=== PATIENT | female | born 1980 | race Hispanic/Latino ===

== ENCOUNTER 2019-08-25 17:34 | Observation (INO) | payer OTHER ==
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
[2019-08-25 18:14] LABS: Absolute Lymphocytes (CBC) 1.7 K/uL (0.7-4.9); Basophils % 0.7 % (0-1.3); Hematocrit 38.1 % (36.0-45.0); Lymphocytes % 38.7 % (15.3-44.8); MPV 8.4 fL (7.6-11.3); Protime INR 1.04; RBC Red Blood Cell Count 4.25 M/uL (3.86-4.86)
--- NOTE | 2019-08-25 18:29 | RAD REPORT ---
EXAM DESCRIPTION: RAD - Chest Single View - 08/25/2019 6:20 pm CLINICAL HISTORY: CHEST PAIN Chest pain. COMPARISON: CHEST PA AND LAT 2 VIEW dated 02/05/2011; CHEST SINGLE VIEW dated 01/19/2011; CHEST PA AND LAT 2 VIEW dated 01/18/2011; CHEST PA AND LAT 2 VIEW dated 01/17/2011 FINDINGS: Portable technique limits examination quality. The lungs are grossly clear. The heart is normal in size. No displaced fractures. IMPRESSION: No acute intrathoracic process suspected.
[2019-08-25 18:30] LABS: ALT/SGPT 28 U/L (12-78); AST/SGOT 19 U/L (15-37); Albumin 3.8 g/dL (3.4-5.0); Alkaline Phosphatase 72 U/L (45-117); BUN Blood Urea Nitrogen 7 mg/dL (7-18); Bicarbonate 28 mmol/L (21-32); Bilirubin Direct 0.1 mg/dL (0-0.2); Bilirubin Total 0.3 mg/dL (0.2-1.0); Glucose Level 76 mg/dL (74-106); Magnesium 2.2 mg/dL (1.8-2.4); NT PRO-BNP 12 pg/mL (<125); Potassium 3.6 mmol/L (3.5-5.1); Protein, Total 7.3 g/dL (6.4-8.2); Sodium Level 140 mmol/L (136-145); Troponin (Emerg Dept Use Only) < 0.02 ng/mL (0.0-0.045)
[2019-08-25] MEDS ORDERED: ONDANSETRON 4 MG/2 ML VIAL ONE (18:40)
[2019-08-25] MEDS ORDERED: MORPHINE 4 MG/ML SYR ONE (18:40)
[2019-08-25] MEDS ORDERED: ASPIRIN 81 MG CHEWABLE TABLET ONE (18:40)
--- NOTE | 2019-08-25 19:47 | EDPHYS ---
[facility] Name: Bozena Hancock Age: 39 yrs Sex: Female : 1980 Arrival Date: 08/25/2019 Time: 17:36 Bed 6 Private MD: Abdi Brumfield R ED Physician Landry Isaac HPI: 08/25 18:39 This 39 yrs old Female presents to ER via Ambulatory with complaints of Chest kdr Pain, Arm Pain. 18:39 The patient or guardian reports chest pain that is located primarily in the substernal kdr area, anterior chest wall, left, xyphoid area and left breast. Onset: suddenly, this morning, at 09:00. The pain radiates to the left arm, the left shoulder, left neck. Associated signs and symptoms: Pertinent positives: nausea, shortness of breath, Pertinent negatives: abdominal pain, diaphoresis, headache, lightheadedness, palpitations, recent travel, syncope, vomiting. The chest pain is described as aching, a pressure, squeezing. Duration: The patient or guardian reports a single episode, that is still ongoing, and unchanged. Modifying factors: The symptoms are alleviated by nothing. the symptoms are aggravated by nothing. Severity of pain: At its worst the pain was moderate severe today, in the emergency department the pain has improved mildly. The patient has experienced similar episodes in the past, a few times, She has not sought treatment prior to today. 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 - Coronavirus screen:: The patient has NOT traveled to [place] in the past 14 days. Proceed with normal triage process as indicated. - Social history:: Smoking status: Patient denies any tobacco usage or history of. - Ebola Screening: : No symptoms or risks identified at this time. ROS: 18:39 Constitutional: Negative for fever, chills, and weight loss, Eyes: Negative for injury, kdr pain, redness, and discharge, ENT: Negative for injury, pain, and discharge, Neck: Negative for injury, pain, and swelling, Respiratory: Negative for shortness of breath, cough, wheezing, and pleuritic chest pain, Abdomen/GI: Negative for abdominal pain, nausea, vomiting, diarrhea, and constipation, Back: Negative for injury and pain, : Negative for injury, bleeding, discharge, and swelling, MS/Extremity: Negative for injury and deformity, Skin: Negative for injury, rash, and discoloration, Neuro: Negative for headache, weakness, numbness, tingling, and seizure activity. Psych: Negative for depression, anxiety, suicide ideation, homicidal ideation, and hallucinations, Allergy/Immunology: Negative for hives, rash, and allergies, Endocrine: Negative for neck swelling, polydipsia, polyuria, polyphagia, and marked weight changes, Hematologic/Lymphatic: Negative for swollen nodes, abnormal bleeding, and unusual bruising. 18:39 Cardiovascular: Positive for chest pain, Negative for edema, orthopnea, palpitations, paroxysmal nocturnal dyspnea. Exam: 18:39 Constitutional: This is a well developed, well nourished patient who is awake, alert, kdr and in no acute distress. Head/Face: Normocephalic, atraumatic. Eyes: Pupils equal round and reactive to light, extra-ocular motions intact. Lids and lashes normal. Conjunctiva and sclera are non-icteric and not injected. Cornea within normal limits. Periorbital areas with no swelling, redness, or edema. Neck: Trachea midline, no thyromegaly or masses palpated, and no cervical lymphadenopathy. Supple, full range of motion without nuchal rigidity, or vertebral point tenderness. No Meningismus. Chest/axilla: Normal chest wall appearance and motion. Nontender with no deformity. No lesions are appreciated. Cardiovascular: Regular rate and rhythm with a normal S1 and S2. No gallops, murmurs, or rubs. Normal PMI, no JVD. No pulse deficits. Respiratory: Lungs have equal breath sounds bilaterally, clear to auscultation and percussion. No rales, rhonchi or wheezes noted. No increased work of breathing, no retractions or nasal flaring. Abdomen/GI: Soft, non-tender, with normal bowel sounds. No distension or tympany. No guarding or rebound. No evidence of tenderness throughout. Back: No spinal tenderness. No costovertebral tenderness. Full range of motion. Skin: Warm, dry with normal turgor. Normal color with no rashes, no lesions, and no evidence of cellulitis. MS/ Extremity: Pulses equal, no cyanosis. Neurovascular intact. Full, normal range of motion. Neuro: Awake and alert, GCS 15, oriented to person, place, time, and situation. Cranial nerves II-XII grossly intact. Motor strength 5/5 in all extremities. Sensory grossly intact. Cerebellar exam normal. Normal gait. Psych: Awake, alert, with orientation to person, place and time. Behavior, mood, and affect are within normal limits. Vital Signs: 17:50 BP 131 / 84 RA; jl7 17:50 BP 137 / 98 LA; Pulse 107; Resp 19 S; Pulse Ox 100% on R/A; Weight 56.7 kg (R); Pain jl7 6/10; 18:30 BP 115 / 81; Pulse 90; Resp 14 S; Temp 98.2(O); Pulse Ox 100% on R/A; jl7 19:30 BP 111 / 80; Pulse 85; Resp 17; Temp 98; Pulse Ox 99% on R/A; Pain 1/10; rr5 20:20 BP 101 / 76; Pulse 75; Resp 16; Pulse Ox 98% ; rr5 21:00 BP 113 / 75; Pulse 80; Resp 16; Temp 97.8; Pulse Ox 98% on R/A; rr5 MDM: 17:55 Post IV fluid administration reassessment for Sepsis:. kdr 19:13 Patient medically screened. jr8 19:35 Data reviewed: vital signs, nurses notes, lab test result(s), EKG, radiologic studies, jr8 plain films. Data interpreted: Pulse oximetry: on room air is 100 %. Interpretation: normal. Counseling: I had a detailed discussion with the patient and/or guardian regarding: the historical points, exam findings, and any diagnostic results supporting the discharge/admit diagnosis, lab results, radiology results, the need for outpatient follow up, a lyric writer, a family practitioner, to return to the emergency department if symptoms worsen or persist or if there are any questions or concerns that arise at home. Response to treatment: the patient's symptoms have markedly improved after treatment. Physician consultation: Abdi Brumfield MD was called at 19:45, was contacted at 19:45, regarding admission, to the telemetry unit. consult, patient's condition. 19:46 ED course: Although patient is feeling much better. Still continues to have mild chest jr8 pressure that is not reproducible. First round of enzymes along with other labs, imaging, and ecg were without concerning findings. Recommended observation if she is still having pain which she agreed to . 08/25 17:45 Order name: Basic Metabolic Panel [facility] 08/25 17:45 Order name: CBC with Diff [facility] 08/25 17:45 Order name: LFT's [facility] 08/25 17:45 Order name: Magnesium [facility] 08/25 17:45 Order name: NT PRO-BNP [facility] 08/25 17:45 Order name: PT-INR [facility] 08/25 17:45 Order name: Troponin (emerg Dept Use Only) [facility] 08/25 17:51 Order name: Basic Metabolic Panel; Complete Time: 19:34 [facility] 08/25 17:51 Order name: CBC with Automated Diff; Complete Time: 19:34 [facility] 08/25 17:51 Order name: Liver (Hepatic) Function; Complete Time: 19:34 [facility] 08/25 17:51 Order name: Magnesium; Complete Time: 19:34 [facility] 08/25 17:52 Order name: NT PRO-BNP; Complete Time: 19:34 [facility] 08/25 17:52 Order name: Protime (+INR); Complete Time: 19:34 [facility] 08/25 17:52 Order name: Troponin (Emerg Dept Use Only); Complete Time: 19:34 [facility] 08/25 17:45 Order name: XRAY Chest (1 view); Complete Time: 19:34 [facility] 08/25 17:45 Order name: EKG; Complete Time: 17:50 [facility] 08/25 17:45 Order name: Cardiac monitoring; Complete Time: 17:56 [facility] 08/25 17:45 Order name: EKG - Nurse/Tech; Complete Time: 17:55 [facility] 08/25 17:45 Order name: IV Saline Lock; Complete Time: 18:06 [facility] 08/25 17:45 Order name: Labs collected and sent; Complete Time: 18:06 [facility] 08/25 17:45 Order name: O2 Per Protocol; Complete Time: 17:56 [facility] 08/25 17:45 Order name: O2 Sat Monitoring; Complete Time: 17:56 [facility] 08/25 19:58 Order name: CONS Physician Consult EDMS EC:39 Rate is 101 beats/min. Rhythm is regular, Sinus tachycardia with No ectopy. QRS [place] is kdr Normal. [place] interval is normal. QRS interval is normal. QT interval is normal. No Q waves. Clinical impression: Normal ECG and Sinus tachycardia. Administered Medications: 18:40 Drug: Zofran 4 mg Route: IVP; Site: right antecubital; jl7 20:12 Follow up: Response: No adverse reaction rr5 18:42 Drug: morphine 4 mg Route: IVP; Site: right antecubital; jl7 20:12 Follow up: Response: No adverse reaction; Pain is decreased; RASS: Alert and Calm (0) rr5 18:44 Drug: Aspirin Chewable Tablet 324 mg Route: PO; jl7 20:12 Follow up: Response: No adverse reaction rr5 Disposition: 08/26 07:08 Co-signature as Attending Physician, Landry Isaac MD I agree with the assessment and [facility] plan of care. Disposition: 08/25/19 19:46 Hospitalization ordered by Abid Brumfield for Observation. Preliminary diagnosis is Chest pain, unspecified. - Bed requested for Telemetry/MedSurg (observation). - Status is Observation. rr5 - Condition is Stable. - Problem is new. - Symptoms have improved. Signatures: Dispatcher [employer] EDCO Landry Isaac MD MD [facility] Hasmukh Blount PA PA jr8 Katerina Sauer, MIRA RN cg Sharon Aiken RN RN jl7 Hiram Barajas, RN RN rr5 Corrections: (The following items were deleted from the chart) 08/25 20:33 19:46 Hospitalization Ordered by Abdi Brumfield MD for Observation. Preliminary diagnosis cg is Chest pain, unspecified. Bed requested for Telemetry/MedSurg (observation). Status is Observation. Condition is Stable. Problem is new. Symptoms have improved. jr8 21:07 20:33 08/25/2019 19:46 Hospitalization Ordered by Abdi Brumfield MD for Observation. rr5 Preliminary diagnosis is Chest pain, unspecified. Bed requested for Telemetry/MedSurg (observation). Status is Observation. Condition is Stable. Problem is new. Symptoms have improved. cg
--- NOTE | 2019-08-25 19:47 | ER ---
Nurse's Notes [facility] Name: Bozena Hancock Age: 39 yrs Sex: Female : 1980 Arrival Date: 08/25/2019 Time: 17:36 Bed 6 Private MD: Abdi Brumfield R Diagnosis: Chest pain, unspecified Presentation: 08/25 17:40 Transition of care: patient was not received from another setting of care. Onset of tw2 symptoms was August 25, 2019. Risk Assessment: Do you want to hurt yourself or someone else? Patient reports no desire to harm self or others. Care prior to arrival: None. 17:40 Method Of Arrival: Ambulatory tw2 17:40 Acuity: NICOLE 3 tw2 17:46 Presenting complaint: Patient states: Constant, squeezing chest pain started this jl7 morning, radiate to left arm and shoulder. Initial Sepsis Screen: Does the patient meet any 2 criteria? No. Patient's initial sepsis screen is negative. Does the patient have a suspected source of infection? No. Patient's initial sepsis screen is negative. Triage Assessment: 17:40 General: Appears in no apparent distress. slender, well groomed, Behavior is calm, tw2 cooperative, appropriate for age. Pain: Complains of pain in chest. Cardiovascular: Reports chest pain. 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 - Coronavirus screen:: The patient has NOT traveled to [place] in the past 14 days. Proceed with normal triage process as indicated. - Social history:: Smoking status: Patient denies any tobacco usage or history of. - Ebola Screening: : No symptoms or risks identified at this time. Screenin:39 Abuse screen: Denies threats or abuse. Nutritional screening: No deficits noted. tw2 Tuberculosis screening: No symptoms or risk factors identified. Fall Risk None identified. Assessment: 17:53 General: Appears in no apparent distress. uncomfortable, Behavior is calm, cooperative, jl7 appropriate for age. Pain: Complains of pain in anterior aspect of left upper chest Pain radiates to left scapular area and left arm Pain currently is 6 out of 10 on a pain scale. Quality of pain is described as squeezing, Pain began This morning Is continuous. Neuro: Level of Consciousness is awake, alert, obeys commands, Oriented to person, place, time, situation. Cardiovascular: Heart tones S1 S2 present Patient's skin is warm and dry. Rhythm is sinus rhythm. Respiratory: Airway is patent Respiratory effort is even, unlabored, Respiratory pattern is regular, symmetrical, Breath sounds are clear bilaterally. Denies shortness of breath. GI: Abdomen is non-distended, Reports nausea. Derm: Skin is pink, warm \T\ dry. 19:20 General: Appears in no apparent distress. comfortable, Behavior is calm, cooperative, rr5 appropriate for age, ED provider advised for admission, patient agreed. . Pain: Complains of pain in chest Pain radiates to left arm Pain currently is 1 out of 10 on a pain scale. Quality of pain is described as discomfort Pain began gradually, Is intermittent. 19:20 Reassessment: Patient states feeling better. Patient states symptoms have improved. rr5 Neuro: Level of Consciousness is awake, alert, obeys commands, Oriented to person, place, time, situation. Cardiovascular: Reports chest discomfort Capillary refill < 3 seconds Patient's skin is warm and dry. Respiratory: Airway is patent Respiratory effort is even, unlabored, Respiratory pattern is regular, symmetrical. GI: No signs and/or symptoms were reported involving the gastrointestinal system. : No signs and/or symptoms were reported regarding the genitourinary system. EENT: No signs and/or symptoms were reported regarding the EENT system. Derm: Skin is intact, is healthy with good turgor, Skin is pink, warm \T\ dry. Musculoskeletal: Capillary refill < 3 seconds. 20:20 Reassessment: Patient appears in no apparent distress at this time. No changes from rr5 previously documented assessment. Patient is alert, oriented x 3, equal unlabored respirations, skin warm/dry/pink. awaiting for room assignment. 20:58 Reassessment: Patient appears in no apparent distress at this time. Patient is alert, rr5 oriented x 3, equal unlabored respirations, skin warm/dry/pink. for transfer to room 406, 4th floor staff informed. Vital Signs: 17:50 BP 131 / 84 RA; jl7 17:50 BP 137 / 98 LA; Pulse 107; Resp 19 S; Pulse Ox 100% on R/A; Weight 56.7 kg (R); Pain jl7 6/10; 18:30 BP 115 / 81; Pulse 90; Resp 14 S; Temp 98.2(O); Pulse Ox 100% on R/A; jl7 19:30 BP 111 / 80; Pulse 85; Resp 17; Temp 98; Pulse Ox 99% on R/A; Pain 1/10; rr5 20:20 BP 101 / 76; Pulse 75; Resp 16; Pulse Ox 98% ; rr5 21:00 BP 113 / 75; Pulse 80; Resp 16; Temp 97.8; Pulse Ox 98% on R/A; rr5 ED Course: 17:36 Patient arrived in ED. mr 17:36 Abdi Brumfield MD is Private Physician. mr 17:39 Bed in low position. Call light in reach. 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 Pulse ox on. NIBP on. tw2 17:39 Arm band placed on. EKG completed in triage. Results shown to MD. tw2 17:40 Triage completed. tw2 17:41 Landry Isaac MD is Attending Physician. kdr 17:45 Sharon Aiken RN is Primary Nurse. jl7 17:53 EKG done, by ED staff, reviewed by Landry Isaac MD. Patient maintains SpO2 saturation jl7 greater than 95% on room air. 18:07 Initial lab(s) drawn, by ne, sent to lab. Inserted saline lock: 20 gauge in right jl7 antecubital area, using aseptic technique. Blood collected. 18:27 XRAY Chest (1 view) In Process Unspecified. EDMS 18:59 Hasmukh Blount PA is PHCP. jr8 19:46 Abdi Brumfield MD is Hospitalizing Provider. jr8 20:59 No provider procedures requiring assistance completed. Patient admitted, IV remains in rr5 place. intact, No redness/swelling at site. Administered Medications: 18:40 Drug: Zofran 4 mg Route: IVP; Site: right antecubital; jl7 20:12 Follow up: Response: No adverse reaction rr5 18:42 Drug: morphine 4 mg Route: IVP; Site: right antecubital; jl7 20:12 Follow up: Response: No adverse reaction; Pain is decreased; RASS: Alert and Calm (0) rr5 18:44 Drug: Aspirin Chewable Tablet 324 mg Route: PO; jl7 20:12 Follow up: Response: No adverse reaction rr5 Outcome: 19:46 Decision to Hospitalize by Provider. jr8 20:59 Admitted to Tele accompanied by [facility], via stretcher, room [facility], with chart, Report rr5 called to tayler 20:59 Condition: stable 20:59 Instructed on the need for admit. 21:07 Patient left the ED. rr5 Signatures: Dispatcher [employer] EDMS Landry Isaac MD MD kdr Rivera, Mary mr Roszak, Josh, PA PA jr8 Adelaide Strong RN RN tw2 Sharon Aiken RN RN jl7 Hiram Barajas RN RN rr5 Corrections: (The following items were deleted from the chart) 18:45 10:40 Zofran 4 mg IVP in right antecubital jl7 jl7 18:48 14:20 morphine 4 mg IVP in right antecubital jl7 jl7 20:59 20:58 Reassessment: Patient appears in no apparent distress at this time. Patient is rr5 alert, oriented x 3, equal unlabored respirations, skin warm/dry/pink. for transfer to room [facility], $th floor staff informed rr5 21:07 21:00 BP 115 / 75; Pulse 80bpm; Resp 16bpm; Pulse Ox 98% RA; rr5 rr5
[2019-08-25] MEDS ORDERED: ONDANSETRON 4 MG/2 ML VIAL IV PRN (21:39)
[2019-08-25] MEDS ORDERED: MORPHINE 4 MG/ML SYR IV PRN (21:39)
[2019-08-25] MEDS ORDERED: ACETAMINOPHEN 500 MG TAB PO PRN (21:39)
[2019-08-25 22:22] VITALS: O2SAT 99
[2019-08-25 23:00] VITALS: BMI 21.7
[2019-08-26 05:31] LABS: Absolute Lymphocytes (CBC) 1.9 K/uL (0.7-4.9); Basophils % 0.8 % (0-1.3); Hematocrit 34.5 % (36.0-45.0); Lymphocytes % 45.1 % (15.3-44.8); MPV 8.5 fL (7.6-11.3); RBC Red Blood Cell Count 3.84 M/uL (3.86-4.86)
[2019-08-26 05:49] LABS: Potassium 3.7 mmol/L (3.5-5.1)
--- NOTE | 2019-08-26 07:52 | EKG ---
Test Date: 2019-08-25 Test Time: 17:43:09 Government Professor: HB MEASUREMENT RESULTS: Intervals: Rate: 101 GA: 116 QRSD: 80 QT: 352 QTc: 456 Bryan: P: 57 GA: 116 QRS: 68 T: 41 INTERPRETIVE STATEMENTS: Sinus tachycardia Otherwise normal ECG Compared to ECG 01/17/2011 15:13:58 Right-axis deviation no longer present Electronically Signed On 08-26-19 07:51:31 AGRICULTURAL AND FORESTRY SUPERVISOR by Hemant Rees
[2019-08-26 07:59] LABS: Blood Morphology Comment NOT SEEN (NOT SEEN); Platelet Estimate ADEQ
[2019-08-26] MEDS ORDERED: INFLUENZA VACCINE (for 3y+) 0.5 ML DOSE IMVAC ONE (08:00)
[2019-08-26] MEDS ORDERED: ASPIRIN EC 81 MG TAB PO SCH (09:00)
[2019-08-26] MEDS ORDERED: REGADENOSON 0.4 MG/5 ML SYR IV ONE (09:27)
--- NOTE | 2019-08-26 11:57 | RAD REPORT ---
EXAM DESCRIPTION: NM - Rest Stress Cardiac Imaging - 08/26/2019 11:48 am CLINICAL HISTORY: Chest pain. COMPARISON: None. TECHNIQUE: The patient was administered approximately 10mCi of Tc 99m Sestamibi prior to resting SPE CT imaging of the heart. The patient was then administered approximately 30 mCi of Tc 99m Sestamibi f ollowing exercise or pharmacologic stress. Multiplanar SPECT images were reviewed. FINDINGS: There is uniformity of radiotracer uptake involving the entire left ventricular myocardiu m on rest and stress images. The left ventricular ejection fraction equals 53% IMPRESSION: Negative for a myocardial perfusion defect
--- NOTE | 2019-08-26 12:03 | TREADPHA ---
DX: CHEST PAIN Date of Study: 08/26/2019 Ht: 5 3 Wt: 123 lb 0 oz Consulting Physician: LETICIA MEDICATIONS: TYLENOL, ASPIRIN, ZOFRAN HISTORY: 39 YEAR OLD FEMALE WITH HISTORY OF INSOMNIA, ADD, ANEMIA. ADMITTED FOR CHEST PAIN RADIATING TO LEFT ARM. DENIES PAIN AT TIME OF STUDY. PHYSICIAL EXAMINATION: RESTING B.P.: 98/64 RESTING H.R.: 67 RESTING EKG: NORMAL PROTOCOL: LEXISCAN EXERCISE TIME: 3:30 B.P. AT PEAK STRESS: 98/62 IMPRESSION: LEXISCAN STRESS TEST PERFORMED. CARDIOLITE INJECTED PER PROTOCOL. NO SUPRAVENTRICULAR TACHYCARDIA OR VENTRICULAR TACHYCARDIA NOTED. PATIENT DENIED CHEST PAIN. TOLERATED WELL. SEE NUCLEAR MEDICINE REPORT.
[2019-08-26 12:05] VITALS: BP 110/59; TEMP 97.1
--- NOTE | 2019-08-26 17:24 | CON ---
Date of Consultation: 08/26/[address] Brumfield's service on 08/25/2019. I saw the patient on 08/26/2019. Reason For Consultation: Chest pain. History Of Present Illness: Ms. Hancock is a 39-year-old woman without any significant past cardiac history. She has a history of attention deficit disorder and depression. Has had 2 episodes now wit h substernal chest pain radiating to the left arm and to the back of the neck that would last hours. No nausea, vomiting, diaphoresis, PND, orthopnea, pedal edema, palpitation, or syncope. Her EKG is normal. Her troponin and BNP are normal. Her symptoms are nonexertional. She does have some numbne ss in her hand occasionally and in her back and sometimes has had episodes of tachycardia unrelated t o food, time of the day, or body position. She does drink caffeine in the form of Coke. Allergies: MORPHINE. Review of Systems: Negative. Social History: Negative. Family History: Noncontributory. Medications: Include Ambien, Abilify, and Wellbutrin. Physical Examination: General: Very pleasant lady. No acute distress. Vital Signs: Stable. Afebrile. HEENT: Negative. Neck: Supple with no bruit. Chest: Clear to auscultation and percussion. Cardiac: Revealed a regular rhythm and rate. No murmurs, gallops, or rubs. Abdomen: Benign. Extremities: Revealed no clubbing, cyanosis, or edema. Diagnostic Data: All stated earlier. Impression And Plan: 1.Atypical chest pain. 2.Palpitation. 3.Attention deficit disorder. 4.Depression. I think this would be reasonable considering her symptoms sound worrisome to get an echocardiogram an d a stress test today. If these are negative, I will consider sending her home on low-dose beta bloc kers. We can see her as an outpatient and set her up for an event monitor and see what her tachycard ia is from. SARABJIT/CRYSTALL Voice ID: [id number] Report ID: [id number]
--- NOTE | 2019-08-26 22:19 | HP ---
Date of Admission: 08/25/2019 Chief Complaint: Chest pain. History Of Present Illness: 39-year-old female who does not have any prior history of coronary arter y disease or cardiac history, was brought to the emergency room because of left precordial chest pain and left arm pain. The patient had evaluation done. There was no evidence of myocardial injury. T he patient is admitted. Past Medical History: 1.Positive for anxiety and depression, on multiple medications. 2.History of ADD present. Past Surgical History: Positive for gallbladder surgery, tubal ligation, and surgery on the left fem ur. Review of Systems: No history of fever, chills, or rigors. Family History: Noncontributory. Personal History: Nonsmoker. Physical Examination: General: Revealed a 39-year-old female, comfortable at rest. HEENT: Negative. Neck: Supple. JVD negative. Chest: Clear. Heart: Regular. Abdomen: Soft. Extremities: No edema. Laboratory: White count normal. Chem profile normal. Troponin normal. EKG: No acute changes. Assessment: 1.Chest pain. 2.Chronic anxiety and depression. 3.ADHD. Plan: The patient is scheduled for stress test and echocardiogram. RHONDA/ANA ROSA Voice ID: [id number]
--- NOTE | 2019-08-29 09:28 | ECHO ---
HEIGHT: 5 ft 3 in WEIGHT: 123 lb 0 oz DATE OF STUDY: 08/26/[address]: Hemant Rees MD 2-DIMENSIONAL: YES M.MODE: YES DOPPLER: YES COLOR FLOW: YES TDS: PORTABLE: DEFINITY: BUBBLE STUDY: DIAGNOSIS: CHEST PAIN CARDIAC HISTORY: CATHERIZATION: NO SURGERY: NO PROSTHETIC VALVE: NO PACEMAKER: NO MEASUREMENTS (cm) DIASTOLIC (NORMALS) SYSTOLIC (NORMALS) IVSd 0.9 (0.6-1.2) LA Diam 2.0 (1.9-4.0) LVEF 55% LVIDd 3.8 (3.5-5.7) LVIDs 2.7 (2.0-3.5) %FS 28% LVPWd 1.0 (0.6-1.2) Ao Diam 2.5 (2.0-3.7) 2 DIMENSIONAL ASSESSMENT: RIGHT ATRIUM: NORMAL LEFT ATRIUM: NORMAL RIGHT VENTRICLE: NORMAL LEFT VENTRICLE: NORMAL TRICUSPID VALVE: NORMAL MITRAL VALVE: NORMAL PULMONIC VALVE: NORMAL AORTIC VALVE: NORMAL PERICARDIAL EFFUSION: NONE AORTIC ROOT: NORMAL LEFT VENTRICULAR WALL MOTION: NORMAL DOPPLER/COLOR FLOW: NORMAL COMMENTS: NORMAL 2-DIMENSIONAL ECHOCARDIOGRAM WITH DOPPLER. NO WALL MOTION ABNORMALITY. NO EFFUSION. TECHNOLOGIST: PETERSON GRANADOS
== END 2019-08-26 14:17 | disposition home or self-care (01) ==
LOC: ER 17:34 → ERHOLD 19:52 → 4TH 20:57
PROVIDERS: ADMIT Internal Medicine; ATTEND Internal Medicine
DX: R07.89 Other chest pain (principal); R00.2 Palpitations; F90.9 Attention-deficit hyperactivity disorder, unspecified type; I25.10 Atherosclerotic heart disease of native coronary artery without angina pectoris; F41.8 Other specified anxiety disorders
CPT/HCPCS: 93005; 93017; 93306; 85025 ×2; 80048 ×2; 36415; 83735; 85610; 80076; 84484 ×3; 83880; 71045; 78452; 96375; 96374; 99285; J2785; J2405; A9500; G0378 ×2

== ENCOUNTER 2022-04-30 06:26 | Day surgery (SDC) | payer OTHER ==
[2022-04-30] MEDS ORDERED: EPINEPHRINE/PF 1 MG/ML AMP ONE (06:49)
[2022-04-30] MEDS: Ringers Lactate 1,000 ML IV ONE ×2 (06:54→07:10)
[2022-04-30] MEDS ORDERED: propofoL 200 MG/20 ML VIAL IV ONE (07:17)
[2022-04-30] MEDS ORDERED: LIDOCAINE 1% MPF 30 ML VIAL ONE (07:18)
--- NOTE | 2022-04-30 08:42 | ENDO RPT ---
[address], [address] EGD PROCEDURE REPORT EXAM DATE: 04/30/2022 PATIENT NAME: Bozena Hancock MR#: [id number] BIRTHDATE: 1980 ATTENDING: Moshe Langley Dr STATUS: outpatient MANAGER NEONATAL: Kayla Chung RN and Nafisa Magaña INDICATIONS: The patient is a 41 yr old Female here for an EGD due to left upper quadrant abdominal pain, bloating, nausea and vomiting, and chronic unexplained diarrhea PROCEDURE PERFORMED: EGD with biopsy MEDICATIONS: Per Anesthesia. TOPICAL ANESTHETIC: none CONSENT: The patient understands the risks and benefits of the procedure and understands that these risks include, but are not limited to: sedation, allergic reaction, infection, perforation and/or bleeding. Alternative means of evaluation and treatment include, among others: physical exam, x-rays, and/or surgical intervention. The patient elects to proceed with this endoscopic procedure. DESCRIPTION OF PROCEDURE: During intra-op preparation period all mechanical medical equipment was checked for proper function. Hand hygiene and appropriate measures for infection prevention was taken. Procedure, possible complications, and alternatives including but not limited to the possibility of bleeding, perforation, tear, infection, sepsis, need for surgery, need for blood transfusion, and anesthesia related complications were explained to the patient. After the risks, benefits and alternatives of the procedure were thoroughly explained, Informed consent was verified, confirmed and timeout was successfully executed by the treatment team. The patient was placed in the left lateral position. The patient was anesthetized with topical anesthesia. Through the anesthetized oropharyngeal area, the scope was passed without any difficulty. The Pentax EG-[id number] ([id number]) endoscope was introduced through the mouth and advanced to the third portion of the duodenum. Retroflexed views revealed a small hiatal hernia. The gastroscope was then slowly withdrawn and removed. A small hiatal hernia was found. Bile reflux fluid was found in the body of the stomach - suctioned out with endoscope. Mild gastritis was found in the body and the antrum of the stomach. Multiple biopsies were obtained and sent to pathology. Few small 2-3 mm sessile polyps were found in the body of the stomach. With jumbo forceps, a biopsy was obtained and sent to pathology. Small bowel biopsies obtained with history of chronic unexplained diarrhea Multiple biopsies were obtained and sent to pathology. ADVERSE EVENTS: There were no complications. IMPRESSIONS: 1. Small hiatal hernia 2. Bile reflux fluid in the body of the stomach - suctioned out with endoscope 3. Mild gastritis in the body and the antrum of the stomach, s/p biopsies 4. Few small 2-3 mm sessile polyps in the body of the stomach, s/p biopsy 5. Small bowel biopsies obtained with history of chronic unexplained diarrhea RECOMMENDATIONS: 1. await biopsy results 2. acid suppression therapy REPEAT EXAM: Moshe Langley Dr eSigned: Moshe Langley Dr 04/30/2022 8:42 AM cc: CPT CODES: ICD9 CODES: PATIENT NAME: Bozena Hancock MR#: [id number]
--- NOTE | 2022-04-30 09:05 | ENDO RPT ---
[address], [address] EGD PROCEDURE REPORT EXAM DATE: 04/30/2022 PATIENT NAME: Bozena Hancock MR#: [id number] BIRTHDATE: 1980 ATTENDING: Moshe Langley Dr STATUS: outpatient ELECTROPHYSIOLOGY NURSE PRACTITIONER: Kayla Chung RN and Nafisa Magaña INDICATIONS: The patient is a 41 yr old Female here for an EGD due to left upper quadrant abdominal pain, bloating, nausea and vomiting, and chronic unexplained diarrhea PROCEDURE PERFORMED: EGD with biopsy MEDICATIONS: Per Anesthesia. TOPICAL ANESTHETIC: none CONSENT: The patient understands the risks and benefits of the procedure and understands that these risks include, but are not limited to: sedation, allergic reaction, infection, perforation and/or bleeding. Alternative means of evaluation and treatment include, among others: physical exam, x-rays, and/or surgical intervention. The patient elects to proceed with this endoscopic procedure. DESCRIPTION OF PROCEDURE: During intra-op preparation period all mechanical medical equipment was checked for proper function. Hand hygiene and appropriate measures for infection prevention was taken. Procedure, possible complications, and alternatives including but not limited to the possibility of bleeding, perforation, tear, infection, sepsis, need for surgery, need for blood transfusion, and anesthesia related complications were explained to the patient. After the risks, benefits and alternatives of the procedure were thoroughly explained, Informed consent was verified, confirmed and timeout was successfully executed by the treatment team. The patient was placed in the left lateral position. The patient was anesthetized with topical anesthesia. Through the anesthetized oropharyngeal area, the scope was passed without any difficulty. The Pentax EG-[id number] ([id number]) endoscope was introduced through the mouth and advanced to the third portion of the duodenum. Retroflexed views revealed a small hiatal hernia. The gastroscope was then slowly withdrawn and removed. A small hiatal hernia was found. Bile reflux fluid was found in the body of the stomach - suctioned out with endoscope. Mild gastritis was found in the body and the antrum of the stomach. Multiple biopsies were obtained and sent to pathology. Few small 2-3 mm sessile polyps were found in the body of the stomach. With jumbo forceps, a biopsy was obtained and sent to pathology. Small bowel biopsies obtained with history of chronic unexplained diarrhea Multiple biopsies were obtained and sent to pathology. ADVERSE EVENTS: There were no complications. IMPRESSIONS: 1. Small hiatal hernia 2. Bile reflux fluid in the body of the stomach - suctioned out with endoscope 3. Mild gastritis in the body and the antrum of the stomach, s/p biopsies 4. Few small 2-3 mm sessile polyps in the body of the stomach, s/p biopsy 5. Small bowel biopsies obtained with history of chronic unexplained diarrhea RECOMMENDATIONS: 1. await biopsy results 2. acid suppression therapy REPEAT EXAM: Moshe Langley Dr eSigned: Moshe Langley Dr 04/30/2022 9:05 AM Revised: 04/30/2022 9:05 AM cc: CPT CODES: ICD9 CODES: PATIENT NAME: Bozena Hancock MR#: [id number]
--- NOTE | 2022-04-30 09:16 | ENDO RPT ---
[address], [address] COLONOSCOPY PROCEDURE REPORT EXAM DATE: 04/30/2022 PATIENT NAME: Bozena Hancock MR #: [id number] BIRTHDATE: 1980 ATTENDING: Moshe Langley Dr STATUS: outpatient RELIGIOUS LEADER: Kayla Chung RN and Nafisa Magaña INDICATIONS: The patient is a 41 yr old Female here for a colonoscopy due to hematochezia, LLQ abdominal pain, change in bowel habits / diarrhea PROCEDURE PERFORMED: Colonoscopy with biopsy MEDICATIONS: Per Anesthesia. ESTIMATED BLOOD LOSS: None CONSENT: The patient understands the risks and benefits of the procedure and understands that these risks include, but are not limited to: sedation, allergic reaction, infection, perforation and/or bleeding. Alternative means of evaluation and treatment include, among others: physical exam, x-rays, and/or surgical intervention. The patient elects to proceed with this endoscopic procedure. DESCRIPTION OF PROCEDURE: During intra-op preparation period all mechanical medical equipment was checked for proper function. Hand hygiene and appropriate measures for infection prevention was taken. Procedure, possible complications, alternatives including, but not limited to possibility of bleeding, perforation, tear, infection, sepsis, need for surgery, need for blood transfusion, were explained to the patient. After the risks, benefits and alternatives of the procedure were thoroughly explained, Informed consent was verified, confirmed and timeout was successfully executed by the treatment team. The patient was placed in the left lateral position. A digital rectal exam was performed and revealed no abnormalities of the rectum. After appropriate level of anesthesia, the scope was passed. The EG-[id number] ([id number]) and EC-[id number] ([id number]) endoscope was introduced through the anus and advanced to the cecum, which was identified by both the appendix and ileocecal valve. The quality of the prep was good. The instrument was then slowly withdrawn as the colon was fully examined. Scope withdrawal time was 8 minutes. COLON FINDINGS: Mild diverticulosis was noted in the left colon. No bleeding was noted from the diverticulosis. Random biopsies of the right colon / left colon / rectum obtained with history of chronic unexplained diarrhea. Small internal hemorrhoids were found. Retroflexed views revealed small hemorrhoids. The scope was then completely withdrawn from the patient and the procedure terminated. ADVERSE EVENTS: There were no complications. IMPRESSIONS: 1. Mild diverticulosis in the left colon (descending sigmoid) 2. Random biopsies of the right colon / left colon / rectum obtained with history of chronic unexplained diarrhea 3. Small internal hemorrhoids 4. Intubation to cecum RECOMMENDATIONS: 1. await biopsy results 3. yearly hemoccult starting in 4 years RECALL: Return in 10 year(s) for Colonoscopy. Moshe Langley Dr eSigned: Moshe Langley Dr 04/30/2022 9:16 AM cc: CPT CODES: ICD9 CODES: PATIENT NAME: Bozena Hancock MR#: [id number]
[2022-04-30 10:43] VITALS: O2SAT 100
[2022-04-30 10:49] VITALS: BP 105/64
[2022-04-30 10:53] VITALS: TEMP 96.8
== END 2022-04-30 09:44 | disposition home or self-care (01) ==
LOC: OR 06:26
PROVIDERS: ATTEND Internal Medicine Gastroenterology
PROC: 0DBF8ZX Excision of Right Large Intestine, Via Natural or Artificial Opening Endoscopic, Diagnostic (ICD-10-PCS; 2022-04-30)
PROC: 0DB68ZX Excision of Stomach, Via Natural or Artificial Opening Endoscopic, Diagnostic (ICD-10-PCS; 2022-04-30)
PROC: 0DB88ZX Excision of Small Intestine, Via Natural or Artificial Opening Endoscopic, Diagnostic (ICD-10-PCS; 2022-04-30)
PROC: 0DBG8ZX Excision of Left Large Intestine, Via Natural or Artificial Opening Endoscopic, Diagnostic (ICD-10-PCS; principal; 2022-04-30 07:30)
PROC: 0DBP8ZX Excision of Rectum, Via Natural or Artificial Opening Endoscopic, Diagnostic (ICD-10-PCS; 2022-04-30 07:30)
DX: R10.11 Right upper quadrant pain (principal); R11.2 Nausea with vomiting, unspecified; R19.7 Diarrhea, unspecified; R14.0 Abdominal distension (gaseous); K92.1 Melena; R10.32 Left lower quadrant pain; K64.8 Other hemorrhoids; K57.30 Diverticulosis of large intestine without perforation or abscess without bleeding; K29.50 Unspecified chronic gastritis without bleeding; K31.7 Polyp of stomach and duodenum
CPT/HCPCS: 36415; 88312; 84703; 88305; 45380; 43239; J2704; J7120; J0171